=== PATIENT | male | born 1955 | race African-American/Black ===

== ENCOUNTER 2016-08-13 11:25 | Emergency (ER) | payer OTHER ==
[~2016-08-13] VITALS: Wt 85.0 kg
[~2016-08-13 11:25] MED LIST: IRBE1TAB29 PO; NO NEW MEDS
[2016-08-13 13:16] LABS: BASOPHIL # 0.1 10^3/ul (0.0-0.1); BASOPHILS % 0.5 % (0.0-2.0); EOSINOPHILS # 0.1 10^3/ul (0.0-0.5); EOSINOPHILS % 0.8 % (0.0-7.0); HEMATOCRIT 45.1 % (42.0-52.0); HEMOGLOBIN 14.9 g/dl (14.0-18.0); LYMPHOCYTES # 1.9 10^3/ul (0.8-2.9); LYMPHOCYTES % 11.5 % (15.0-51.0); MEAN CORPUSCULAR HEMOGLOBIN 29.5 pg (29.0-33.0); MEAN CORPUSCULAR HGB CONC 33.1 g/dl (32.0-37.0); MEAN CORPUSCULAR VOLUME 89.1 fl (82.0-101.0); MEAN PLATELET VOLUME 6.4 fl (7.4-10.4); MONOCYTE # 0.8 10^3/ul (0.3-0.9); MONOCYTES % 4.6 % (0.0-11.0); NEUTROPHIL # 13.5 10^3/ul (1.6-7.5); NEUTROPHILS % 82.6 % (39.0-77.0); PLATELET COUNT 270 10^3/UL (140-440); RED BLOOD COUNT 5.07 10^6/ul (4.70-6.10); RED CELL DISTRIBUTION WIDTH 15.2 % (11.5-14.5); UNCORRECTED WBC 16.4 10^3/ul (4.8-10.8); WHITE BLOOD COUNT 16.4 10^3/ul (4.8-10.8)
[2016-08-13 13:22] LABS: ADD UMIC YES; URINE BILIRUBIN (Dip) NEGATIVE (NEGATIVE); URINE BLOOD (Dip) 3+ (NEGATIVE); URINE COLOR RED (YELLOW); URINE GLUCOSE (Dip) NEGATIVE (NEGATIVE); URINE KETONES (Dip) NEGATIVE (NEGATIVE); URINE LEUKOCYTE ESTERASE (Dip) NEGATIVE (NEGATIVE); URINE NITRITE (Dip) NEGATIVE (NEGATIVE); URINE TOTAL PROTEIN (Dip) 2+ (NEGATIVE); URINE UROBILINOGEN (Dip) 1.0 E.U./dL (0.1-1.0)
[2016-08-13 13:23] LABS: CONDITION 1; LH ANALYZER COMMENTS 1
[2016-08-13 13:25] LABS: ALBUMIN 4.3 g/dl (3.3-4.9)
[2016-08-13 13:26] LABS: POTASSIUM 4.6 mmol/L (3.5-5.1)
[2016-08-13 13:28] LABS: ALBUMIN/GLOBULIN RATIO 1.22; BILIRUBIN,INDIRECT 0.1 mg/dl (0-1.1); BILIRUBIN,TOTAL 0.1 mg/dl (0.2-1.3); CREATININE 0.91 mg/dl (0.61-1.24); TOTAL PROTEIN 7.8 g/dl (6.1-8.1)
[2016-08-13 13:29] LABS: CALCIUM 9.3 mg/dl (8.4-10.2)
[2016-08-13 13:38] LABS: URINE RBCS >200 /HPF (0)
--- NOTE | 2016-08-13 14:10 | RADRPT ---
PROCEDURE: CT abdomen and pelvis without contrast. CLINICAL INDICATION: Hematuria for 4 days. TECHNIQUE: CT of the abdomen and pelvis without contrast was performed on a multidetector high-res olution CT scanner. Coronal and sagittal reformatted images were obtained from the axial source imag es. Images were reviewed on a high-resolution PACS workstation. The total exam CTDI equals 10.27 mGy and the total exam DLP equals 634.75 mGy-cm. One or more of the following dose reduction techniques were used: - Automated exposure control. - Adjustment of the mA and/or kV according to patient size. - Use of iterative reconstruction technique. COMPARISON: None available. FINDINGS: There is advanced centrilobular emphysema within the visualized lung bases. Consolidation is partia lly seen within the visualized right middle lobe and there is subsegmental atelectasis elsewhere wit hin the visualized lung bases. The visualized heart is unremarkable. There are sub-centimeter hypodensities in the liver, which likely represent cysts, but too small to further characterize. No concerning focal hepatic lesion is identified. There is no intra or extrah epatic biliary ductal dilatation. The gallbladder, spleen, pancreas, adrenal glands are grossly unre markable. There is increased density in the region of the upper pole right renal calyces extending to the carmelita on of the renal pelvis, which is nonspecific. There is a simple 2.1 cm cyst at the midportion of th e left kidney and a simple 2.1 cm cyst at the lower pole of the right kidney. There is no nephrolit hiasis or hydronephrosis. There is pancolonic diverticulosis without bowel wall thickening or evidence of obstruction. The collette endix is in the right lower quadrant, and is unremarkable. There is no free intraperitoneal air or f ree fluid. There are multiple hyperdense lymph nodes within the periportal region and retroperitone um, which may reflect partial calcification related to granulomatous disease. There are atheroscler otic changes of the aorta, which is nonaneurysmal. The prostate gland is enlarged measuring 5.6 cm i n axial dimension. The seminal vesicles and urinary bladder are grossly unremarkable. There is mild to moderate multilevel degenerative spondylosis. There are no concerning osseous lesions. IMPRESSION: 1. Nonspecific increased density in the region of the right upper pole renal calyces extending to t he region of the renal pelvis. Post contrast CT urogram is recommended for further evaluation. 2. Advanced centrilobular emphysema within the visualized lung bases and partially visualized conso lidation in the right middle lobe. 3. Multiple hyperdense lymph nodes in the periportal region and retroperitoneum, which may reflect calcification related to prior granulomatous disease. 4. Pancolonic diverticulosis. 5. Vascular calcifications consistent with atherosclerosis. 6. Enlarged prostate gland. Correlate with PSA. RPTAT: AA .Melvin Giraldo MD, MD Date Time Electronically viewed and signed by .Melvin Giraldo MD, MD on 08/13/2016 14:10 .P/
[2016-08-13] MEDS ORDERED: SOD CHLORIDE 0.9% 100 ML ONE (15:12)
[2016-08-13] MEDS ORDERED: IOHEXOL 300MG/ML 150 ML BTL ONE (15:12)
--- NOTE | 2016-08-13 15:57 | RADRPT ---
AMENDMENT: 08/13/2016 4:02:12 PM Luoie Hernandez M.D. A call report was made to Dr. BOYKIN at 08/13/2016 4:02:10 PM. PROCEDURE: CT Abdomen and Pelvis with contrast - urogram excretory phase. CLINICAL INDICATION: Abdominal pain TECHNIQUE: CT scan of the abdomen and pelvis with contrast was performed on a multidetector high-r esolution CT scanner. Coronal and sagittal reformatted images were obtained from the axial source im ages. Images were reviewed on a high-resolution PACS workstation. 80 cc of Isovue 300 iodinated cont rast was administered intravenously without reported complication. The total exam CTDI equals 10/11 mGy and the total exam DLP equals 1012 mGy-cm. COMPARISON: Abdominal CT earlier today FINDINGS: Emphysematous changes. Segmental atelectasis and scarring in the right middle lobe, lingula and walter ateral lower lobes. Multiple subcentimeter hypodense lesions are too small to characterize on this exam. The portal vein is patent. The pancreas and adrenals are unremarkable. 4 mm hypodense splenic lesion is too small to characterize. No focal pericholecystic inflammatory changes. Bilateral renal cysts. There is a right upper renal pelvis collecting system mass measuring 2.5 x 2 .2 x 2.4 cm(transverse x anteroposterior x craniocaudal). No obstructing renal stone. The right boubacar l vein remains patent. No bowel obstruction. Normal-caliber appendix. Extensive colonic diverticulosis. Enlarged prostate gland. No evidence of retroperitoneal lymphadenopathy, ascites or evidence of pneumoperitoneum. Aortoiliac atherosclerosis. Degenerative changes of the spine. 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 Recommend consultation with Urology. Colonic diverticulosis. Emphysematous changes. Segmental atelectasis and scarring in the right middle lobe, lingula and walter ateral lower lobes. Enlarged prostate gland. Aortic atherosclerosis. RPTAT: AA .Louie Hernandez MD, MD Date Time Electronically viewed and signed by .Louie Hernandez MD, MD on 08/13/2016 16:03 .T/
[2016-08-13] MEDS ORDERED: LEVO500T72 PO (16:28)
--- NOTE | 2016-08-13 16:34 | ERD ---
ER Documentation Chief Complaint Date/Time DATE: 08/13/16 TIME: 16:31 Chief Complaint BLOOD IN URINE HPI 61-year-old male presents with gross blood in the urine for the last day. He has no pain, dysuria, fevers. They have a mild cough. His history of chronic back pain ROS All systems reviewed and are negative except as per history of present illness. Medications Home Meds Active Scripts Levofloxacin* (Levaquin*) 500 Mg Tablet, 500 MG PO DAILY for 7 Days, TAB Prov:RAMONITA BOYKIN MD 08/13/16 Reported Medications Irbesartan/Hydrochlorothiazide (Avalide) 1 Tab Tab, 1 TAB PO DAILY 07/23/13 [No New Meds] No Conflict Check 01/20/12 Allergies Allergies: Coded Allergies: No Known Allergy (Unverified , 07/23/13) PMhx/Soc History of Surgery: Yes (R. rotator cuff) Anesthesia Reaction: No Hx Neurological Disorder: No Hx Respiratory Disorders: No Hx Cardiac Disorders: Yes (HTN) Hx Psychiatric Problems: No Hx Miscellaneous Medical Probl: No Hx Alcohol Use: No Hx Substance Use: Yes (MARAJUANA) Hx Tobacco Use: Yes (1 PK/DAY) Smoking Status: Current every day smoker Physical Exam Vitals Vital Signs Date Time Temp Pulse Resp B/P Pulse Ox O2 Delivery O2 Flow Rate FiO2 08/13/16 11:29 97.2 102 18 138/91 98 Physical Exam Const: [] Head: Atraumatic Eyes: Normal Conjunctiva ENT: Normal External Ears, Nose and Mouth. Neck: Full range of motion..~ No meningismus. Resp: Clear to auscultation bilaterally Cardio: Regular rate and rhythm, no murmurs Abd: Soft, non tender, non distended. Normal bowel sounds Skin: No petechiae or rashes Back: No midline or flank tenderness Ext: No cyanosis, or edema Neur: Awake and alert Psych: Normal Mood and Affect Result Diagram: 08/13/16 1308 08/13/16 1308 Results 24 hrs Laboratory Tests Test 08/13/16 13:00 08/13/16 13:08 Urine Bilirubin NEGATIVE Urine Clarity CLEAR Urine Color RED Urine Glucose NEGATIVE% Urine Hemoglobin 3+ Urine Ketones NEGATIVE Urine Leukocyte Esterase NEGATIVE Urine Microscopic RBC >200/HPF Urine Microscopic WBC NONE SEEN/HPF Urine Nitrite NEGATIVE Urine Specific [place] 1.010 Urine Total Protein 2+ Urine Urobilinogen 1.0 E.U./dL Urine pH 6.5 Alanine Aminotransferase (ALT/SGPT) 33IU/L Albumin 4.3g/dl Albumin/Globulin Ratio 1.22 Alkaline Phosphatase 83IU/L Anion Gap 15 Aspartate Amino Transf (AST/SGOT) 24IU/L Basophils # 0.110^3/ul Basophils % 0.5% Blood Morphology Comment Blood Urea Nitrogen 16mg/dl Calcium Level 9.3mg/dl Carbon Dioxide Level 29mmol/L Chloride Level 103mmol/L Creatinine 0.91mg/dl Direct Bilirubin 0.00mg/dl Eosinophils # 0.110^3/ul Eosinophils % 0.8% Globulin 3.50g/dl Glucose Level 91mg/dl Hematocrit 45.1% Hemoglobin 14.9g/dl Indirect Bilirubin 0.1mg/dl Lymphocytes # 1.910^3/ul Lymphocytes % 11.5% Mean Corpuscular Hemoglobin 29.5pg Mean Corpuscular Hemoglobin Concent 33.1g/dl Mean Corpuscular Volume 89.1fl Mean Platelet Volume 6.4fl Monocytes # 0.810^3/ul Monocytes % 4.6% Neutrophils # 13.510^3/ul Neutrophils % 82.6% Nucleated Red Blood Cells # 0.010^3/ul Nucleated Red Blood Cells % 0.0/100WBC Platelet Count 01031^3/UL Potassium Level 4.6mmol/L Red Blood Count 5.0710^6/ul Red Cell Distribution Width 15.2% Sodium Level 142mmol/L Total Bilirubin 0.1mg/dl Total Protein 7.8g/dl White Blood Count 16.410^3/ul Current Medications Medications (Trade) Dose Ordered Sig/Kalpesh Route PRN Reason Start Time Stop Time Status Last Admin Dose Admin IV Flush 10 ml 10 ml STK-MED ONCE .ROUTE 08/13/16 15:12 08/13/16 15:13 DC 08/13/16 15:39 Sodium Chloride (NS) 100 ml @ ud STK-MED ONCE .ROUTE 08/13/16 15:12 08/13/16 15:13 DC 08/13/16 15:39 Iohexol (Omnipaque 300mg/ ml) 150 ml STK-MED ONCE .ROUTE 1/2/17 15:12 08/13/16 15:13 DC 08/13/16 15:39 Procedures/MDM CBC shows a white blood cell count of 16 point fever. BUN/creatinine normal and CMP is normal. Urine shows 3+ blood without leukocytes, nitrites or glucose. Noncontrast CT scan shows possible lesion in the right upper pole of the kidney and IV contrast recommended. CT with IV contrast shows a 2.5 cm lesion in the right upper renal pelvis suspicious for urothelial carcinoma. There is a possible consolidation versus atelectasis in the right middle lobe emphysematous changes in the right lung. Given the leukocytosis. Patient was treated with Levaquin but patient will additionally be referred to urology for further evaluation of renal lesion as well as hematuria. Patient shows no signs of sepsis, hemorrhage, acute renal failure or additional abnormalities requiring further intervention and study currently. He should otherwise return for fevers, vomiting, new or worsening symptoms however. Patient was advised may need authorization from primary care doctor for urology visit. Departure Diagnosis: Primary Impression: Pneumonia Pneumonia type: due to unspecified organism Laterality: right Lung location : middle lobe of lung Qualified Code: J18.9 - Pneumonia of right middle lobe due to infectious organism Additional Impression: Hematuria Condition: Stable Patient Instructions: Hematuria, Pneumonia (Adult), Tumor, Uncertain Cause Referrals: VERONICA HARRIS MD,SUSAN BIRD MD Additional Instructions: Lesion on CT scan of kidney is possible tumor and recommended to see urologist for further evaluation treatment. There is possible mild pneumonia as well seen on CT scan and he will be treated for this. May need authorization from primary doctor for urology visit. RAMONITA BOYKIN MD Aug 13, 2016 16:34
[2016-08-13 16:42] VITALS: BP 144/85; PULSE 85; RESP 20; TEMP 98.3
== END 2016-08-13 16:42 | disposition home or self-care (01) ==
LOC: FTE 11:25
DX: J18.9 Pneumonia, unspecified organism (principal); I10 Essential (primary) hypertension; F17.210 Nicotine dependence, cigarettes, uncomplicated
CPT/HCPCS: 74176; 74177; 80053; 81001; 85025; Q9967; 81003

== ENCOUNTER 2016-08-22 22:51 | Emergency (ER) | payer OTHER ==
[~2016-08-22] VITALS: Ht 182.9 cm; Wt 84.0 kg
[~2016-08-22 22:51] MED LIST changes: +LEVO500T72 PO
[2016-08-22 22:57] VITALS: Ht 182.9 cm; Wt 84.0 kg
--- NOTE | 2016-08-23 00:12 | ERA ---
ER Documentation Chief Complaint Date/Time DATE: 08/23/16 TIME: 00:12 Chief Complaint right flank pain blood in urine x 2 days HPI The patient is a 61-year-old male, presenting to the ER because of recurrent right flank pain with bloody urine for the last 2 days. The pain is 10/10, no aggravating or relieving factor. 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 He is awaiting to see urologist. He was treated for pneumonia a week ago, complains of intermittent cough, nausea but no vomiting. He denies diarrhea, constipation, complaints of hematuria. He smokes a pack a day, smokes marijuana, denies drinking Past medical history: Hypertension, chronic low back pain Past surgical history: Right rotator cuff ROS All systems reviewed and are negative except as per history of present illness. Medications Home Meds Active Scripts Hydrocodone/Acetaminophen ([place] 10-325 Tablet) 1 Each Tablet, 1 TAB PO Q6H Y for PAIN, #7 TAB Prov:FEMI PADGETT MD 08/23/16 Levofloxacin* (Levaquin*) 500 Mg Tablet, 500 MG PO DAILY for 7 Days, TAB Prov:RAMONITA BOYKIN MD 08/13/16 Reported Medications Irbesartan/Hydrochlorothiazide (Avalide) 1 Tab Tab, 1 TAB PO DAILY 07/23/13 [No New Meds] No Conflict Check 01/20/12 Allergies Allergies: Coded Allergies: No Known Allergy (Unverified , 07/23/13) PMhx/Soc History of Surgery: Yes (R. rotator cuff) Anesthesia Reaction: No Hx Neurological Disorder: No Hx Respiratory Disorders: No Hx Cardiac Disorders: Yes (HTN) Hx Psychiatric Problems: No Hx Miscellaneous Medical Probl: No Hx Alcohol Use: No Hx Substance Use: Yes (MARAJUANA) Hx Tobacco Use: Yes (1 PK/DAY) Physical Exam Vitals Vital Signs Date Time Temp Pulse Resp B/P Pulse Ox O2 Delivery O2 Flow Rate FiO2 08/23/16 01:30 90 14 127/84 95 Nasal Cannula 1.0 08/23/16 00:36 98.1 94 20 130/89 96 Room Air 08/22/16 22:57 98.3 104 20 166/97 99 Physical Exam Const: No acute distress. Head: Atraumatic. Eyes: Normal Conjunctiva. ENT: Normal External Ears, Nose and Mouth. Neck: Full range of motion. No meningismus. Resp: Clear to auscultation bilaterally. Cardio: Regular rate and rhythm, no murmurs. Abd: Soft, non distended, normal bowel sounds, mild right flank tenderness Skin: No petechiae or rashes. Back: No midline or flank tenderness. Ext: No cyanosis, or edema. Neur: Awake and alert. No focal deficit Psych: Normal Mood and Affect. Result Diagram: 08/23/163408/23/165 Results 24 hrs Laboratory Tests Test 08/23/16 00:35 08/23/16 02:42 Alanine Aminotransferase (ALT/SGPT) 28IU/L Albumin 3.7g/dl Albumin/Globulin Ratio 1.23 Alkaline Phosphatase 86IU/L Anion Gap 14 Aspartate Amino Transf (AST/SGOT) 27IU/L Basophils # 0.010^3/ul Basophils % 0.4% Blood Morphology Comment Blood Urea Nitrogen 17mg/dl Calcium Level 8.3mg/dl Carbon Dioxide Level 27mmol/L Chloride Level 100mmol/L Creatinine 1.54mg/dl Direct Bilirubin 0.00mg/dl Eosinophils # 0.210^3/ul Eosinophils % 1.5% Ethyl Alcohol Level < 10.0mg/dl Globulin 3.00g/dl Glucose Level 89mg/dl Hematocrit 31.3% Hemoglobin 10.6g/dl Indirect Bilirubin 0.1mg/dl Lipase 24U/L Lymphocytes # 1.410^3/ul Lymphocytes % 13.0% Mean Corpuscular Hemoglobin 30.4pg Mean Corpuscular Hemoglobin Concent 33.8g/dl Mean Corpuscular Volume 89.9fl Mean Platelet Volume 7.4fl Monocytes # 0.810^3/ul Monocytes % 7.2% Neutrophils # 8.410^3/ul Neutrophils % 77.9% Nucleated Red Blood Cells # 0.010^3/ul Nucleated Red Blood Cells % 0.0/100WBC Platelet Count 11204^3/UL Potassium Level 4.1mmol/L Red Blood Count 3.4810^6/ul Red Cell Distribution Width 15.1% Sodium Level 137mmol/L Total Bilirubin 0.1mg/dl Total Protein 6.7g/dl White Blood Count 10.810^3/ul Bedside Urine Blood 2+ Bedside Urine Glucose (UA) Negative Bedside Urine Ketones (LAB) Trace Bedside Urine Leukocyte Esterase (L Negative Bedside Urine Nitrite (LAB) Negative Bedside Urine Protein (LAB) Trace Bedside Urine pH (LAB) 5.5 Current Medications Medications (Trade) Dose Ordered Sig/Kalpesh Route PRN Reason Start Time Stop Time Status Last Admin Dose Admin Hydromorphone HCl 1 mg 1 mg ONCE STAT IV 08/23/16 00:17 08/23/16 00:20 DC 08/23/16 00:36 Ondansetron HCl/ Dextrose (Zofran Inj/D5W) 54 ml @ 200 mls/hr ONCE STAT IV 08/23/16 00:17 08/23/16 00:33 Cancel Ondansetron HCl (Zofran Inj) 4 mg STK-MED ONCE .ROUTE 08/23/16 00:25 08/23/16 00:26 DC Ondansetron HCl (Zofran Inj) 4 mg ONCE STAT IV 08/23/16 00:36 08/23/16 00:37 DC 08/23/16 00:37 Hydromorphone HCl (Dilaudid) 1 mg ONCE STAT IV 08/23/16 01:16 08/23/16 01:17 DC 08/23/16 01:27 Epinephrine 1 mg STK-MED ONCE .ROUTE 08/23/16 02:28 08/23/16 02:29 DC Procedures/MDM MEDICAL MAKING DECISION: The patient is a 61-year-old male, presenting with recurrent right flank pain and hematuria. The differential diagnoses considered include but are not limited to renal colic, cystitis, pyelonephritis , renal carcinoma, cholelithiasis, cholecystitis, cystitis, pancreatitis, hepatitis, gastritis, peptic ulcer disease, gastric ulcer, appendicitis, diverticulitis, cholangitis, choledocholithiasis, partial small bowel obstruction. he was treated with Dilaudid 1 mg IV 2 for pain and Zofran 4 mg IV 1 for nausea with good response. Departure Diagnosis: Primary Impression: Right flank pain Additional Impressions: Renal insufficiency Anemia Hematuria Condition: Good Comments He was discharged with [place] I discussed the findings with the patient. I advised the patient to follow-up with his urologist in about 1-2 days to rule out renal malignancy, sooner if needed and return if any concern. FEMI PADGETT MD Aug 23, 2016 00:12
[2016-08-23] MEDS ORDERED: HYDROmorphONE 1 MG/ML SYG IV STA ×2 (00:17→01:16)
[2016-08-23] MEDS ORDERED: ONDANSETRON INJ 8 MG in DEXTROSE 5% 50 ML IV STA (00:17)
[2016-08-23] MEDS ORDERED: ONDANSETRON 4 MG INJ ONE (00:25)
[2016-08-23] MEDS ORDERED: ONDANSETRON 4 MG INJ IV STA (00:36)
--- NOTE | 2016-08-23 01:18 | RADRPT ---
PROCEDURE: XR Chest. CLINICAL INDICATION: Abdominal Pain TECHNIQUE: Single frontal view of the chest was obtained. COMPARISON: None. FINDINGS: The cardiomediastinal silhouette is normal size. Pulmonary vasculature is within normal limits. Th ere is atelectasis and/or scarring at the lung bases. There is a left chest stimulator extending to wards the neck. No signs of pleural fluid or pneumothorax are seen. The osseous structures and soft tissues are unre markable. IMPRESSION: Atelectasis and/or scarring at the lung bases. No focal consolidation or edema. RPTAT: HBST .Frank Fuller MD, MD Date Time Electronically viewed and signed by .Frank Fuller MD, MD on 08/23/2016 01:18 .T/
[2016-08-23 01:22] LABS: ALBUMIN 3.7 g/dl (3.3-4.9); CHLORIDE 100 mmol/L (97-110)
[2016-08-23 01:23] LABS: POTASSIUM 4.1 mmol/L (3.5-5.1); SODIUM 137 mmol/L (135-144)
[2016-08-23 01:25] LABS: ALANINE AMINOTRANSFERASE 28 IU/L (13-69); ALBUMIN/GLOBULIN RATIO 1.23; ALKALINE PHOSPHATASE 86 IU/L (42-121); ANION GAP 14 (8-16); ASPARTATE AMINO TRANSFERASE 27 IU/L (15-46); BILIRUBIN,INDIRECT 0.1 mg/dl (0-1.1); BILIRUBIN,TOTAL 0.1 mg/dl (0.2-1.3); BLOOD UREA NITROGEN 17 mg/dl (7-20); CARBON DIOXIDE 27 mmol/L (21-31); CREATININE 1.54 mg/dl (0.61-1.24); TOTAL PROTEIN 6.7 g/dl (6.1-8.1)
[2016-08-23 01:26] LABS: CALCIUM 8.3 mg/dl (8.4-10.2); GLUCOSE 89 mg/dl (70-220)
[2016-08-23 01:27] LABS: ETHANOL < 10.0 mg/dl
[2016-08-23 02:07] LABS: BASOPHILS % 0.4 % (0.0-2.0); EOSINOPHILS # 0.2 10^3/ul (0.0-0.5); EOSINOPHILS % 1.5 % (0.0-7.0); HEMATOCRIT 31.3 % (42.0-52.0); HEMOGLOBIN 10.6 g/dl (14.0-18.0); LYMPHOCYTES # 1.4 10^3/ul (0.8-2.9); MEAN CORPUSCULAR HEMOGLOBIN 30.4 pg (29.0-33.0); MEAN CORPUSCULAR HGB CONC 33.8 g/dl (32.0-37.0); MEAN CORPUSCULAR VOLUME 89.9 fl (82.0-101.0); MEAN PLATELET VOLUME 7.4 fl (7.4-10.4); MONOCYTE # 0.8 10^3/ul (0.3-0.9); MONOCYTES % 7.2 % (0.0-11.0); NEUTROPHIL # 8.4 10^3/ul (1.6-7.5); NEUTROPHILS % 77.9 % (39.0-77.0); PLATELET COUNT 245 10^3/UL (140-440); RED BLOOD COUNT 3.48 10^6/ul (4.70-6.10); RED CELL DISTRIBUTION WIDTH 15.1 % (11.5-14.5); UNCORRECTED WBC 10.8 10^3/ul (4.8-10.8); WHITE BLOOD COUNT 10.8 10^3/ul (4.8-10.8)
[2016-08-23 02:10] LABS: CONDITION 1; LH ANALYZER COMMENTS 1
[2016-08-23] MEDS ORDERED: EPINEPHrine 0.1 MG/ML SYG ONE (02:28)
[2016-08-23 02:42] LABS: URINE BLOOD (Dip) POC 2+ (NEGATIVE)
[2016-08-23] MEDS ORDERED: HYDR-902 PO (03:10)
[2016-08-23 03:30] VITALS: BP 134/84; PULSE 79; RESP 18; TEMP 98
[2016-08-23 08:59] LABS: BARBITURATES Positive (NEGATIVE)
[2016-08-23 09:03] LABS: BENZODIAZEPINES Negative (NEGATIVE); CANNABINOIDS Negative (NEGATIVE); COCAINE Negative (NEGATIVE); OPIATES Positive (NEGATIVE)
== END 2016-08-23 03:30 | disposition home or self-care (01) ==
LOC: E/R 22:51
DX: R10.9 Unspecified abdominal pain (principal); I10 Essential (primary) hypertension; R31.9 Hematuria, unspecified; D64.9 Anemia, unspecified; N28.9 Disorder of kidney and ureter, unspecified; F17.210 Nicotine dependence, cigarettes, uncomplicated
CPT/HCPCS: 36415; 71010; 80053; 80306; 80307; 81003; 83690; 85025; 96374; 96375; 96376; 99284; J0171; J1170; J2405

== ENCOUNTER 2016-10-10 18:04 | Emergency (ER) | payer OTHER ==
[~2016-10-10] VITALS: Ht 170.2 cm; Wt 77.7 kg
[~2016-10-10 18:04] MED LIST changes: +HYDR-902 PO
[2016-10-10 18:50] VITALS: Ht 170.2 cm; Wt 77.7 kg
[2016-10-10] MEDS ORDERED: CEFTRIAXONE 1 GM/50 ML (PMX) 50 ML IVPB STA (21:46)
[2016-10-10] MEDS ORDERED: ONDANSETRON 4 MG INJ IV STA (21:46)
[2016-10-10] MEDS ORDERED: SODIUM CHLORIDE 0.9% 1L BAG IV* STA (21:46)
[2016-10-10] MEDS ORDERED: morphine 2 MG INJ IV ONE (22:00)
[2016-10-10] MEDS ORDERED: DICLOFENAC SODIUM 37.5 MG/ML VIAL IV STA (22:07)
[2016-10-10] MEDS ORDERED: GABA-526 PO (22:25)
[2016-10-10] MEDS ORDERED: MODA200T35 PO (22:26)
[2016-10-10] MEDS ORDERED: MIRT30TA5 PO (22:27)
[2016-10-10] MEDS ORDERED: LOSA100T7 PO (22:27)
[2016-10-10] MEDS ORDERED: AMLO-147 PO (22:27)
[2016-10-10] MEDS ORDERED: BUPR300T36 PO (22:29)
[2016-10-10 22:41] LABS: ADD SCAN DIFF NO
[2016-10-10 22:47] LABS: BASOPHILS % 0.4 % (0.0-2.0); EOSINOPHILS % 0.4 % (0.0-7.0); HEMATOCRIT 35.9 % (42.0-52.0); HEMOGLOBIN 11.3 g/dl (14.0-18.0); LYMPHOCYTES # 1.9 10^3/ul (0.8-2.9); LYMPHOCYTES % 22.6 % (15.0-51.0); MEAN CORPUSCULAR HGB CONC 31.5 g/dl (32.0-37.0); MEAN CORPUSCULAR VOLUME 88.9 fl (82.0-101.0); MEAN PLATELET VOLUME 9.3 fl (7.4-10.4); MONOCYTES % 11.9 % (0.0-11.0); NEUTROPHIL # 5.5 10^3/ul (1.6-7.5); NEUTROPHILS % 64.3 % (39.0-77.0); PLATELET COUNT 283 10^3/UL (140-415); RED BLOOD COUNT 4.04 10^6/ul (4.70-6.10); WHITE BLOOD COUNT 8.5 10^3/ul (4.8-10.8)
[2016-10-10 22:56] LABS: ALBUMIN 3.5 g/dl (3.3-4.9)
[2016-10-10 22:57] LABS: CHLORIDE 104 mmol/L (97-110); POTASSIUM 3.7 mmol/L (3.5-5.1); SODIUM 144 mmol/L (135-144)
[2016-10-10 22:59] LABS: ANION GAP 14 (8-16); ASPARTATE AMINO TRANSFERASE 24 IU/L (15-46); CARBON DIOXIDE 30 mmol/L (21-31); CREATININE 1.11 mg/dl (0.61-1.24); TOTAL PROTEIN 7.4 g/dl (6.1-8.1)
[2016-10-10 23:00] LABS: ALANINE AMINOTRANSFERASE 26 IU/L (13-69); ALBUMIN/GLOBULIN RATIO 0.89; ALKALINE PHOSPHATASE 87 IU/L (42-121); BLOOD UREA NITROGEN 12 mg/dl (7-20); CALCIUM 8.6 mg/dl (8.4-10.2); GLUCOSE 104 mg/dl (70-220)
--- NOTE | 2016-10-10 23:10 | RADRPT ---
PROCEDURE: XR Chest. CLINICAL INDICATION: Possible sepsis. TECHNIQUE: Single frontal view of the chest was obtained COMPARISON: 08/23/2016. FINDINGS: Left anterior chest wall presumed neurostimulator. Cardiomegaly. Hyperinflation of COPD in changes of centrolobular emphysema. There is no pleural effusion or pneumothorax. IMPRESSION: No acute disease. RPTAT: [facility]U Physician Milvia Date Time Electronically viewed and signed by Physician Milvia on 10/10/2016 23:10 RS/
[2016-10-10 23:13] LABS: TROPONIN-I < 0.012 ng/ml (0.00-0.12)
[2016-10-10] MEDS ORDERED: ALBUTEROL 0.5% (NEB) 2.5 MG/0.5 ML AMP HHN STA (23:48)
[2016-10-11] MEDS ORDERED: IPRATROPIUM (NEB) 0.5 MG/2.5 ML AMP HHN ONE
[2016-10-11 00:22] LABS: ADD UMIC YES; URINE BILIRUBIN (Dip) NEGATIVE (NEGATIVE); URINE BLOOD (Dip) 3+ (NEGATIVE); URINE COLOR RED (YELLOW); URINE GLUCOSE (Dip) NEGATIVE (NEGATIVE); URINE KETONES (Dip) NEGATIVE (NEGATIVE); URINE LEUKOCYTE ESTERASE (Dip) NEGATIVE (NEGATIVE); URINE NITRITE (Dip) NEGATIVE (NEGATIVE); URINE TOTAL PROTEIN (Dip) 2+ (NEGATIVE); URINE UROBILINOGEN (Dip) 0.2 E.U./dL (0.1-1.0)
[2016-10-11] MEDS ORDERED: BENZ100C70 PO (00:25)
[2016-10-11] MEDS ORDERED: ALBU18HF INHALATION (00:25)
[2016-10-11] MEDS ORDERED: AZIT500T5 PO (00:25)
[2016-10-11 00:26] LABS: BACTERIA,URINE FEW; MUCUS,URINE FEW; SQUAMOUS EPITHELIAL CELL,UR RARE; URINE RBCS >200 /HPF (0)
[2016-10-11] MEDS ORDERED: PRED20TA PO (00:26)
[2016-10-11] MEDS ORDERED: CEPH-443 PO (00:30)
[2016-10-11] MEDS ORDERED: CEPHALEXIN 500 MG CAP PO ONE (00:30)
[2016-10-11 00:37] LABS: INR 0.96; PARTIAL THROMBOPLASTIN TIME 26.3 Sec (25.0-35.0); PROTIME 12.8 Sec (12.2-14.2)
--- NOTE | 2016-10-11 00:39 | ERD ---
ER Documentation Chief Complaint Date/Time DATE: 10/11/16 TIME: 00:32 Chief Complaint body aches, sore throat, headaches, weakness HPI This 61-year-old male presents emergency room for generalized body aches and sore throat feeling more tired than usual. Also has blood in his urine. States that he's had this before was never been diagnosed with anything in particular. Also has a cough. States that he has asthma but does not feel particularly short of breath. Denies chest pain. ROS All systems reviewed and are negative except as per history of present illness. Medications Home Meds Active Scripts Cephalexin* (Keflex*) 500 Mg Capsule, 500 MG PO TID for 5 Days, CAP Prov:VALENCIA SAUCEDA 10/11/16 Prednisone* (Prednisone*) 20 Mg Tab, 40 MG PO DAILY for 4 Days, TAB Prov:VALENCIA SAUCEDA 10/11/16 Albuterol Sulfate* (Ventolin HFA*) 18 Gm Hfa.aer.ad, 2 PUFF INHALATION Q4H, #1 INHALER Prov:KOMALVALENCIA 10/11/16 Azithromycin* (Azithromycin*) 500 Mg Tablet, 500 MG PO DAILY, #3 TAB Prov:VALENCIA SAUCEDA DO 10/11/16 Benzonatate* (Tessalon Perle*) 100 Mg Capsule, 100 MG PO Q8H Y for COUGH, #20 CAP Prov:VALENCIA SAUCEDA 10/11/16 Reported Medications Bupropion Hcl* (Bupropion XL*) 300 Mg Tab.sr.24h, 300 MG PO DAILY, TAB.SA 10/10/16 Mirtazapine* (Mirtazapine*) 30 Mg Tablet, 30 MG PO DAILY, TAB 10/10/16 Losartan Potassium* (Losartan Potassium*) 100 Mg Tablet, 100 MG PO DAILY, TAB 10/10/16 Amlodipine Besylate* (Amlodipine Besylate*) 10 Mg Tablet, 10 MG PO DAILY, #30 TAB 10/10/16 Modafinil* (Modafinil*) 200 Mg Tablet, 200 MG PO DAILY, TAB 10/10/16 Gabapentin* (Gabapentin*) 600 Mg Tablet, 600 MG PO TID, #90 TAB 10/10/16 Discontinued Reported Medications Irbesartan/Hydrochlorothiazide (Avalide) 1 Tab Tab, 1 TAB PO DAILY 07/23/13 [No New Meds] No Conflict Check 01/20/12 Discontinued Scripts Hydrocodone/Acetaminophen ([place] 10-325 Tablet) 1 Each Tablet, 1 TAB PO Q6H Y for PAIN, #7 TAB Prov:FEMI PADGETT MD 08/23/16 Levofloxacin* (Levaquin*) 500 Mg Tablet, 500 MG PO DAILY for 7 Days, TAB Prov:RAMONITA BOYKIN MD 08/13/16 Allergies Allergies: Coded Allergies: No Known Allergy (Unverified , 10/10/16) PMhx/Soc History of Surgery: Yes (R. rotator cuff, HERNIA REPAIR) Anesthesia Reaction: No Hx Neurological Disorder: Yes ("TREMORS") Hx Respiratory Disorders: Yes (COPD) Hx Cardiac Disorders: No Hx Psychiatric Problems: Yes Hx Miscellaneous Medical Probl: Yes (HEP C) Hx Alcohol Use: No Hx Substance Use: No Hx Tobacco Use: Yes (1 PK/DAY) Smoking Status: Current every day smoker Physical Exam Vitals Vital Signs Date Time Temp Pulse Resp B/P Pulse Ox O2 Delivery O2 Flow Rate FiO2 10/10/16 23:56 96 16 98 Nasal Cannula 2.0 10/10/16 23:19 90 20 137/83 95 Nasal Cannula 2.0 10/10/16 22:29 Nasal Cannula 2 10/10/16 18:50 100.2 114 20 119/76 97 Physical Exam Const: [] Head: Atraumatic Eyes: Normal Conjunctiva ENT: Normal External Ears, Nose and Mouth. Neck: Full range of motion..~ No meningismus. Resp: Clear to auscultation bilaterally Cardio: Regular rate and rhythm, no murmurs Abd: Soft, non tender, non distended. Normal bowel sounds Skin: No petechiae or rashes Back: No midline or flank tenderness Ext: No cyanosis, or edema Neur: Awake and alert Psych: Normal Mood and Affect Result Diagram: 10/10/16222810/10/162228 Results 24 hrs Laboratory Tests Test 10/10/16 22:29 10/10/16 23:40 Alanine Aminotransferase (ALT/SGPT) 26IU/L Albumin 3.5g/dl Albumin/Globulin Ratio 0.89 Alkaline Phosphatase 87IU/L Anion Gap 14 Aspartate Amino Transf (AST/SGOT) 24IU/L Basophils # 0.010^3/ul Basophils % 0.4% Blood Urea Nitrogen 12mg/dl Calcium Level 8.6mg/dl Carbon Dioxide Level 30mmol/L Chloride Level 104mmol/L Creatinine 1.11mg/dl Direct Bilirubin 0.00mg/dl Eosinophils # 0.010^3/ul Eosinophils % 0.4% Globulin 3.90g/dl Glucose Level 104mg/dl Hematocrit 35.9% Hemoglobin 11.3g/dl Indirect Bilirubin 0.0mg/dl Lactic Acid Level 1.8mmol/L Lymphocytes # 1.910^3/ul Lymphocytes % 22.6% Mean Corpuscular Hemoglobin 28.0pg Mean Corpuscular Hemoglobin Concent 31.5g/dl Mean Corpuscular Volume 88.9fl Mean Platelet Volume 9.3fl Monocytes # 1.010^3/ul Monocytes % 11.9% Neutrophils # 5.510^3/ul Neutrophils % 64.3% Nucleated Red Blood Cells # 0.010^3/ul Nucleated Red Blood Cells % 0.0/100WBC Platelet Count 18993^3/UL Potassium Level 3.7mmol/L Red Blood Count 4.0410^6/ul Red Cell Distribution Width 15.0% Sodium Level 144mmol/L Total Bilirubin 0.0mg/dl Total Protein 7.4g/dl Troponin I < 0.012ng/ml White Blood Count 8.510^3/ul Urine Bacteria FEW Urine Bilirubin NEGATIVE Urine Clarity CLOUDY Urine Color RED Urine Glucose NEGATIVE% Urine Hemoglobin 3+ Urine Ketones NEGATIVE Urine Leukocyte Esterase NEGATIVE Urine Microscopic RBC >200/HPF Urine Microscopic WBC 0-2/HPF Urine Mucus FEW Urine Nitrite NEGATIVE Urine Specific [place] 1.025 Urine Squamous Epithelial Cells RARE Urine Total Protein 2+ Urine Urobilinogen 0.2 E.U./dL Urine pH 6.0 Current Medications Medications (Trade) Dose Ordered Sig/Kalpesh Route PRN Reason Start Time Stop Time Status Last Admin Dose Admin Sodium Chloride 2410 ml 2,410 ml BOLUS OVER 2 HOURS STAT IV* 10/10/16 21:46 10/10/16 21:48 DC 10/10/16 22:40 Ceftriaxone Sodium (Rocephin) 50 ml @ 100 mls/hr ONCE STAT IVPB 10/10/16 21:46 10/10/16 22:15 DC 10/10/16 22:38 Ondansetron HCl (Zofran Inj) 4 mg ONCE STAT IV 10/10/16 21:46 10/10/16 21:48 DC 10/10/16 22:39 Morphine Sulfate (morphine) 2 mg ONCE ONCE IV 10/10/16 22:00 10/10/16 22:01 DC 10/10/16 22:39 Diclofenac Sodium (Dyloject) 37.5 mg ONCE STAT IV 10/10/16 22:07 10/10/16 22:09 DC 10/10/16 22:39 Albuterol (Proventil 0.5% (Neb)) 5 mg ONCE STAT HHN 10/10/16 23:48 10/10/16 23:50 DC 10/10/16 23:56 Ipratropium [place] (Atrovent 0.02% (Neb)) 0.5 mg ONCE ONCE HHN 10/11/16 00:00 10/11/16 00:01 DC 10/10/16 23:56 Cephalexin (Keflex) 500 mg ONCE ONCE PO 10/11/16 00:30 10/11/16 00:31 DC Procedures/MDM I be viral syndrome with superimposed bronchitis and patient with underlying lung disease. No signs of serious bacterial infection as patient has normal white count and is nontoxic appearing. Was given a breathing treatment of albuterol and Atrovent nebulized as x-ray did show hyperinflated lungs. Patient also does have hematuria without obvious evidence of UTI. Because this is the most common causes of hematuria though I will treated with Keflex for 5 days and recommended urology follow-up. Like the patient to be scoped with cystoscopy and for this and is verbal and written instructions. As a mild anemia and also discharging with azithromycin and Tessalon Perles as well as prednisone for 4 days. Primary care follow-up in next 2 days. Departure Diagnosis: Primary Impression: Bronchitis Additional Impressions: Viral syndrome COPD exacerbation Condition: Stable Patient Instructions: Bronchitis, Antiobiotic Treatment (Adult), Copd Flare, Hematuria, Viral Syndrome (Adult) Additional Instructions: Call your primary care doctor TOMORROW for an appointment during the next 2-3 days. Get a referall to see a urologist for cystoscopy for your hematuria. See the doctor sooner or return here if your condition worsens before your appointment time. VALENCIA SAUCEDA DO Oct 11, 2016 00:39
[2016-10-11 00:45] VITALS: BP 127/83; PULSE 93; RESP 19
== END 2016-10-11 00:45 | disposition home or self-care (01) ==
LOC: E/R 18:04
DX: J20.9 Acute bronchitis, unspecified (principal); B34.9 Viral infection, unspecified; J44.1 Chronic obstructive pulmonary disease with (acute) exacerbation; F17.210 Nicotine dependence, cigarettes, uncomplicated; R31.9 Hematuria, unspecified
CPT/HCPCS: 36415; 71010; 80053; 81001; 81003; 83605; 84484; 85025; 85610; 85730; 87040; 87086; 87400; 93005; 94664; 96374; 96375; 99285; J0696; J2270; J2405; J7030

== ENCOUNTER 2017-05-03 00:01 | Emergency (ER) | payer OTHER ==
[~2017-05-03] VITALS: Ht 182.9 cm; Wt 67.0 kg
[~2017-05-03 00:01] MED LIST changes: +ALBU18HF INHALATION; +AMLO-147 PO; +AZIT500T5 PO; +BENZ100C70 PO; +BUPR300T36 PO; +CEPH-443 PO; +GABA-526 PO; -HYDR-902 PO; -IRBE1TAB29 PO; -LEVO500T72 PO; +LOSA100T7 PO; +MIRT30TA5 PO; +MODA200T35 PO; -NO NEW MEDS; +PRED20TA PO
[2017-05-03 00:06] VITALS: Ht 182.9 cm; Wt 67.0 kg
[2017-05-03] MEDS ORDERED: KETOROLAC 30 MG INJ IM STA (00:57)
[2017-05-03] MEDS ORDERED: HYDR-906 PO (01:00)
--- NOTE | 2017-05-03 01:09 | ERA ---
ER Documentation Chief Complaint Date/Time DATE: 05/03/17 TIME: 01:04 Chief Complaint c/o "pinched nerve on neck." Radiating to arm. HPI 61-year-old male presenting with a chief complaint of left shoulder pain. Patient states he has been diagnosed with a trapped nerve in his neck. He sees pain management doctor. 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 Patient states that the pain is worse with movement. Nontender to palpation. Has had a shot once that alleviated the pain. Is requesting multiple pain medications. No other complaints and describes no other associated manifestations. Denies recent narcotic use. ROS All systems reviewed and are negative except as per history of present illness. Medications Home Meds Active Scripts Hydrocodone/Acetaminophen ([place] 5-325 Tablet) 1 Each Tablet, 1 TAB PO Q6H Y for PAIN, #7 TAB Prov:FEMI KENT PA-C 05/03/17 Cephalexin* (Keflex*) 500 Mg Capsule, 500 MG PO TID for 5 Days, CAP Prov:VALENCIA SAUCEDA DO 10/11/16 Prednisone* (Prednisone*) 20 Mg Tab, 40 MG PO DAILY for 4 Days, TAB Prov:VALENCIA SAUCEDA DO 10/11/16 Albuterol Sulfate* (Ventolin HFA*) 18 Gm Hfa.aer.ad, 2 PUFF INHALATION Q4H, #1 INHALER Prov:VALENCIA SAUCEDA DO 10/11/16 Azithromycin* (Azithromycin*) 500 Mg Tablet, 500 MG PO DAILY, #3 TAB Prov:VALENCIA SAUCEDA DO 10/11/16 Benzonatate* (Tessalon Perle*) 100 Mg Capsule, 100 MG PO Q8H Y for COUGH, #20 CAP Prov:VALENCIA SAUCEDA DO 10/11/16 Reported Medications Bupropion Hcl* (Bupropion XL*) 300 Mg Tab.sr.24h, 300 MG PO DAILY, TAB.SA 10/10/16 Mirtazapine* (Mirtazapine*) 30 Mg Tablet, 30 MG PO DAILY, TAB 10/10/16 Losartan Potassium* (Losartan Potassium*) 100 Mg Tablet, 100 MG PO DAILY, TAB 10/10/16 Amlodipine Besylate* (Amlodipine Besylate*) 10 Mg Tablet, 10 MG PO DAILY, #30 TAB 10/10/16 Modafinil* (Modafinil*) 200 Mg Tablet, 200 MG PO DAILY, TAB 10/10/16 Gabapentin* (Gabapentin*) 600 Mg Tablet, 600 MG PO TID, #90 TAB 10/10/16 Allergies Allergies: Coded Allergies: No Known Allergy (Unverified , 10/10/16) PMhx/Soc History of Surgery: Yes (R. rotator cuff, HERNIA REPAIR) Anesthesia Reaction: No Hx Neurological Disorder: Yes ("TREMORS") Hx Respiratory Disorders: Yes (COPD) Hx Cardiac Disorders: No Hx Psychiatric Problems: Yes Hx Miscellaneous Medical Probl: Yes (HEP C) Hx Alcohol Use: No Hx Substance Use: No Hx Tobacco Use: Yes (1 PK/DAY) Physical Exam Vitals Vital Signs Date Time Temp Pulse Resp B/P Pulse Ox O2 Delivery O2 Flow Rate FiO2 05/03/17 00:06 97.5 97 18 198/107 92 Physical Exam Const: Well-appearing no acute distress Head: Atraumatic Eyes: Normal Conjunctiva ENT: Normal External Ears, Nose and Mouth. Neck: Full range of motion..~ No meningismus. Resp: Clear to auscultation bilaterally Cardio: Regular rate and rhythm, no murmurs Abd: Soft, non tender, non distended. Normal bowel sounds Skin: No petechiae or rashes Back: No midline or flank tenderness Ext: No cyanosis, or edema. Decreased range of motion in all directions of left shoulder secondary to pain. All other extremities have full range of motion. Good tone. Neur: Awake and alert. Neurovascularly intact bilaterally. Psych: Normal Mood and Affect Results 24 hrs Current Medications Medications (Trade) Dose Ordered Sig/Kalpesh Route PRN Reason Start Time Stop Time Status Last Admin Dose Admin Ketorolac Tromethamine (Toradol) 30 mg ONCE STAT IM 05/03/17 00:57 05/03/17 01:00 DC Procedures/MDM Otherwise healthy 61-year-old male complaining of chronic left shoulder pain. Has had a shot that relieved the symptoms once before. Was given a Medrol Dosepak prescription which he decided not to get filled. X-rays are not indicated at this time. Most likely diagnosis is osteoarthritis of left shoulder. Given the patient orthopedic referral list as well as a short course of note William. I have discussed with the patient the adverse effects of medication as well as the role of emergency department and how treating pain is not 1 of its priorities. I have no suspicion for neurovascular compromise or bony pathologies.I have spoke with the patient regarding their condition and future management. They have verbally responded that they understand their status and treatment plan. The patients vitals are stable, and their current condition is appropriate for discharge. The patient will be given discharge instructions with return precautions. Departure Diagnosis: Primary Impression: Osteoarthritis Qualified Code: M19.012 - Osteoarthritis of left shoulder, unspecified osteoarthritis type Condition: Stable Patient Instructions: Osteoarthritis: Coping with Pain Referrals: [facility] 7 a.m.- 11 p.m. Every Day of the Week NO APPOINTMENT OR AUTHORIZATION NEEDED SO [facility] [place] Hours: Mon-Sat 9:00 AM - 5:00 PM Additional Instructions: Follow up with your PCP within the next 1-3 days for a more thorough evaluation and a possible referral to a specialist. Return the the emergency department immediately if symptoms worsen or change. If you have any questions regarding medications, ask your pharmacist or us before you leave. If any adverse reactions occur while taking your medications, discontinue the treatment and return to the emergency department immediately. Take your medications as directed, and complete the entire course of treatment. FEMI KENT PA-C May 03, 2017 01:09
== END 2017-05-03 01:27 | disposition home or self-care (01) ==
LOC: FTE 00:01
DX: M19.012 Primary osteoarthritis, left shoulder (principal); J44.9 Chronic obstructive pulmonary disease, unspecified; F17.210 Nicotine dependence, cigarettes, uncomplicated
CPT/HCPCS: 96372; 99284; J1885